=== PATIENT | male | born 1960 | race Caucasian/White ===

== ENCOUNTER 2017-12-31 08:37 | Day surgery (SDC) | payer OTHER ==
[2017-12-27 10:00] VITALS: BMI 29.1
--- NOTE | 2017-12-31 07:49 | P.GSHP ---
History of Present Illness H&P Date: 12/31/17 CHIEF COMPLAINT: Ventral hernia HISTORY OF PRESENT ILLNESS: The patient is a 57-year-old male who presents with a history of swelling and pain along the abdomen from a hernia. Now he presents for surgical intervention. PAST MEDICAL HISTORY: Please see list. PAST SURGICAL HISTORY: Please see list. MEDICATIONS: Please see list. ALLERGIES: Please see list. SOCIAL HISTORY: No illicit drug use FAMILY HISTORY: No reports of Crohn disease or ulcerative colitis. REVIEW OF ORGAN SYSTEMS: CONSTITUTIONAL: No reports of fevers or chills. No reports of weight loss despite prior attempts. GI: Denies any blood in stools or constipation. PHYSICAL EXAM: VITAL SIGNS: Stable GENERAL: Well-developed pleasant male in no acute distress. HEENT: No scleral icterus. Extraocular movements grossly intact. Moist buccal mucosa. NECK: Supple without lymphadenopathy. CHEST: Unlabored respirations. Equal bilateral excursions. CARDIOVASCULAR: Regular rate and rhythm. Distal 2+ pulses. ABDOMEN: Soft, nondistended. Palpable defect of the abdomen. No peritoneal signs. MUSCULOSKELETAL: No clubbing, cyanosis, or edema. ASSESSMENT: 1. Ventral hernia PLAN: 1. Recommend robotic ventral hernia repair with mesh. 2. Benefits and risks of surgical intervention was discussed including possibility of open technique. 3. DVT prophylaxis. 4. Antibiotic prophylaxis. 5. He has obtained cardiac clearance. Past Medical History Past Medical History: Coronary Artery Disease (CAD) Additional Past Medical History / Comment(s): ASD; SOB;umbillical hernia History of Any Multi-Drug Resistant Organisms: None Reported Past Surgical History: Heart Catheterization With Stent Additional Past Surgical History / Comment(s): skin graft,LORI, 01-15-16 percutaneous septal closure atrium. Past Anesthesia/Blood Transfusion Reactions: No Reported Reaction Date of Last Stent Placement:: 12/11/15 Smoking Status: Former smoker - Past Family History Mother Family Medical History: Coronary Artery Disease (CAD), Myocardial Infarction ([place] ) Father Family Medical History: Myocardial Infarction ([place]) Medications and Allergies Home Medications Medication Instructions Recorded Confirmed Type Aspirin 325 mg PO DAILY 12/09/15 12/27/17 History Nitroglycerin Sl Tabs [Nitrostat] 0.4 mg SUBLINGUAL DIRECTED PRN 12/09/15 History Atorvastatin [Lipitor] 80 mg PO HS #30 tab 12/12/15 12/27/17 Rx Metoprolol Tartrate [Lopressor] 25 mg PO BID #30 tab 12/12/15 12/27/17 Rx ALPRAZolam [Xanax] 0.25 mg PO TID PRN 12/20/15 12/27/17 History Montelukast [Singulair] 10 mg PO HS 12/27/17 12/27/17 History Allergies Allergy/AdvReac Type Severity Reaction Status Date / Time Penicillins Allergy Unknown Verified 12/27/17 09:49 Childhood
[~2017-12-31 08:37] MED LIST: DEXAMETHASONE SOD PHOSPHATE 10 MG/ML 1 ML VIAL IV ONE; HEPARIN SODIUM,PORCINE 5,000 UNIT/ML 1 ML VIAL SQ STA; MIDAZOLAM 2 MG/2 ML VIAL IV PRN; MORPHINE SULFATE 4 MG/ML SYRINGE IV PRN; SCOPOLAMINE 1.5MG/72HR PATCH TRANSDERM ONE; ceFAZolin IN SWFI 2 GM/20 ML SYRINGE IVP ONE
[2017-12-31 09:16] LABS: Glucose,Whole Blood 151 mg/dL (75-99)
[2017-12-31] MEDS: LACTATED RINGERS 1,000 ML IV SCH ×3 (09:20→16:09)
[2017-12-31] MEDS: ACETAMINOPHEN IV (For NPO) 1,000 MG in EMPTY BAG 1 BAG IVPB ONE ×2 (09:21→09:42)
[2017-12-31] MEDS: ONDANSETRON 4 MG/2 ML VIAL IVP ONE ×2 (09:21→14:10)
[2017-12-31] MEDS ORDERED: SUCCINYLCHOLINE CHLORIDE 100 MG/5 ML SYR IV ONE (09:44)
[2017-12-31] MEDS ORDERED: LIDOCAINE 1% INJ 10MG/ML (20 ML MDV) ONE (09:44)
[2017-12-31] MEDS ORDERED: NEOSTIGMINE 1 MG/ML 10 ML VIAL ONE (09:44)
[2017-12-31] MEDS ORDERED: MIDAZOLAM 2 MG/2 ML VIAL ONE (09:44)
[2017-12-31] MEDS ORDERED: GLYCOPYRROLATE 0.2 MG/ML 2 ML VIAL ONE (09:44)
[2017-12-31] MEDS ORDERED: HYDROmorphone (PF) 1 MG/ML ONE (09:44)
[2017-12-31] MEDS ORDERED: KETOROLAC 30 MG/ML 1 ML VIAL ONE (09:44)
[2017-12-31] MEDS ORDERED: ROCURONIUM BROMIDE 10 MG/ML 10 ML VIAL IV ONE (09:44)
[2017-12-31] MEDS ORDERED: fentaNYL (PF) 50 MCG/ML 2 ML AMP ONE (09:44)
[2017-12-31] MEDS ORDERED: PROPOFOL 10 MG/ML 20 ML VIAL IV ONE (09:44)
[2017-12-31] MEDS ORDERED: DEXAMETHASONE SOD PHOS (MDV) 100 MG/10 ML VIAL ONE (09:44)
[2017-12-31] MEDS ORDERED: BUPIVACAINE (PF) 0.5% 30 ML VIAL SQ ONE (10:20)
[2017-12-31] MEDS ORDERED: LACTATED RINGERS 1,000 ML IV ONE (10:45)
[2017-12-31 11:32] VITALS: TEMP 97.2
[2017-12-31 12:23] VITALS: RESP 16
--- NOTE | 2017-12-31 13:00 | P.PCN ---
Date of Procedure: 12/31/17 Preoperative Diagnosis: Incarcerated ventral hernia, 4 cm Postoperative Diagnosis: Same Procedure(s) Performed: Robotic-assisted repair of incarcerated initial ventral umbilical hernia, [address] mesh 11.4 cm Anesthesia: GETA, local Surgeon: Maxine Goodman Estimated Blood Loss (ml): 5 Pathology: other (Incarcerated ventral hernia sac) Condition: stable Disposition: same day Operative Findings: Incarcerated umbilical hernia completely reduced and excised. Ventral defect were approximated with 0-V LOC. Description of Procedure:
[2017-12-31 16:07] VITALS: BP 138/76; PULSE 91
--- NOTE | 2018-01-02 23:03 | P.OP ---
Date of Procedure: 12/31/17 Description of Procedure: SURGEON: GO KU MD AIRPORT DUTY MANAGER: 1. Nessa Sanford 2. Stacy Alba. PREOPERATIVE DIAGNOSES: 1. Incarcerated umbilical ventral hernia. 2. Hypertensive cardiomyopathy. 3. Asthma. 4. Coronary artery disease. POSTOPERATIVE DIAGNOSES: 1. Incarcerated umbilical ventral hernia. 2. Hypertensive cardiomyopathy. 3. Asthma. 4. Coronary artery disease. 5. Incarcerated ventral umbilical hernia, 4 cm. OPERATION: 1. Robotic-assisted laparoscopic reduction and repair of incarcerated umbilical ventral hernia, 4 cm, with Bard Ventralight ST mesh 11.4 cm. ANESTHESIA: GETA, local ESTIMATED BLOOD LOSS: 5 mL. SPECIMENS: (Incarcerated ventral hernia sac) COMPLICATIONS: None. Condition: stable Disposition: same day INDICATIONS: The patient is a 57-year-old male who comes in with incarceration of umbilical hernia. Surgical intervention with laparoscopic versus robotic and open techniques were reviewed. Placement of mesh was also reviewed. Benefits and risks were thoroughly described. Informed consent was obtained. DESCRIPTION OF PROCEDURE: The patient was brought into the operating room and laid in supine position. After general induction, the abdomen had been prepped and draped in standard sterile fashion. Ioban draping was also placed. Prior to incision, a timeout protocol was confirmed with surgical team regarding the patient's name including procedures to be performed. The robot was primed prior to the procedure. Initial incision was made with an #11 blade along the left upper quadrant after anesthetizing the skin. A 0 degree 5 mm laparoscopic trocar entry was performed. Diagnostic laparoscopy demonstrated no small bowel pathology. An incarcerated umbilical hernia 4 cm was also identified. A 12 mm trocar was placed along the left lateral abdominal wall 10 cm lateral to the umbilicus. An 8 mm port was placed along the left lower quadrant under direct localization. The 5-mm port was exchanged for an 8 mm robotic port. Placements of the ports were at 10 to 15 cm from the target anatomy and at least 8 cm apart. Next, an 11.[address] mesh was entered into abdominal cavity under direct visualization. The [employer] SI robot was primed, prepped, draped then docked along the left side of the patient. I then sat at the robot [employer]ale SI console where working arms of the robot including scissor connected to cauterty and graspers were placed by assistant account manager. Initial attention was brought to the anterior abdominal wall whereby upon careful observation a defect of 4-cm was at the umbilicus found. Using dissecting grasper as well as electro-Bovie cautery, the peritoneum was scored. The incarcerated fat of the umbilicus was delivered into the abdominal cavity. The size of the defect was 4 cm upon measurement. The fascia was cleaned of peritoneal fat to allow for 3 to 5 cm margin of the mesh. Next, hemostasis was checked with cautery. The ventral defect was closed using a running stitch of 0 V-Loc suture initially from the 12 o'clock to 6 o'clock position in a longitudinal fashion. Ventralight ST 11.4 cm, circular mesh was positioned with the rough side of the mesh was placed toward the anterior abdominal wall. The smooth side was placed towards the bowel. Starting from 10 o'clock position to the 6 o'clock position, 2-0 V-Loc suture was ran in a peritoneum to fascia to the mesh approach. Similarly another V-Loc stitch was run from 6 o'clock to 10 o'clock completely adhering the mesh to the anterior abdominal wall. The V-Loc sutures were cut with robotic scissors to the level of the fascia and extracted from the abdominal cavity by the assistant account manager. The da Gale SI robot was undocked from the patient. I re-scrubbed into the case for closure of incisions. The fascia of the 12-mm port was reapproximated using 0 Vicryl and a Teo hompson. Similarly, the left upper quadrant incarcerated incisional hernia was reduced into the abdominal cavity with graspers. Two simple sutures of 0-Vicryl and a Teo Ortiz were placed with complete closure of the incisional hernia. The incisions were reapproximated using 4-0 Monocryl in an interrupted subcuticular fashion. Dermabond was applied to the skin. An umbilical dressing was placed. All instruments and pneumoperitoneum were evacuated from the abdominal cavity. At the end of the procedure, needle, sponge, and instrument count had been verified correct by operating room surgical technician. The patient was taken to the postanesthesia care unit in stable condition with abdominal binder. Intraoperative films were described to the patient's family who were pleased with the level of care. FINDINGS: 1. Incarcerated umbilical hernia defect, 4 cm. Plan - Discharge Summary Discharge Rx Participant: Yes New Discharge Prescriptions: New HYDROcodone/APAP 5-325MG [[place] 5-325] 1 tab PO Q6HR PRN #20 tab PRN Reason: Pain Ibuprofen [Motrin] 600 mg PO Q8HR PRN #30 tab PRN Reason: pain Continue Aspirin 325 mg PO DAILY Nitroglycerin Sl Tabs [Nitrostat] 0.4 mg SUBLINGUAL DIRECTED PRN PRN Reason: Chest Pain Atorvastatin [Lipitor] 80 mg PO HS #30 tab Metoprolol Tartrate [Lopressor] 25 mg PO BID #30 tab ALPRAZolam [Xanax] 0.25 mg PO TID PRN PRN Reason: Anxiety Montelukast [Singulair] 10 mg PO HS Discharge Medication List Aspirin 325 mg PO DAILY 12/09/15 [History] Nitroglycerin Sl Tabs [Nitrostat] 0.4 mg SUBLINGUAL DIRECTED PRN 12/09/15 [ History] Atorvastatin [Lipitor] 80 mg PO HS #30 tab 12/12/15 [Rx] Metoprolol Tartrate [Lopressor] 25 mg PO BID #30 tab 12/12/15 [Rx] ALPRAZolam [Xanax] 0.25 mg PO TID PRN 12/20/15 [History] Montelukast [Singulair] 10 mg PO HS 12/27/17 [History] HYDROcodone/APAP 5-325MG [[place] 5-325] 1 tab PO Q6HR PRN #20 tab 12/31/17 [Rx] Ibuprofen [Motrin] 600 mg PO Q8HR PRN #30 tab 12/31/17 [Rx] Follow up Appointment(s)/Referral(s): Go Ku MD [STAFF PHYSICIAN] - 01/04/18 8:00 am ([facility] ) Patient Instructions/Handouts: *Surgery [facility] - (Anesthesia) Discharge Instructions Outpatient Surgery, *Surgery [facility] - Scopalamine Patch Instructions, Abdominal Binder (DC), Ventral Hernia Repair (DC) Activity/Diet/Wound Care/Special Instructions: Do not remove dressings. Wear binder on at all times except showering. No bath tub soaks. No lifting over 4 pounds in 4 weeks. Discharge Disposition: HOME SELF-CARE
--- NOTE | 2018-01-05 08:18 | CDI ---
Date: 01/05/2018 CDS/Paint Tester Name: Brayan Watson Phone: If any questions, call [employer] Marketing Researcher at [phone] Patient Name: Festus Mccormick Admit Date: 12/31/2017 Discharge Date: 12/31/2017 ATTENTION: The [facility] Coding Staff appreciate your assistance in clarifying documentation. Please respond to the clarification below the line at the bottom and electronically sign. The [facility] Coding staff will review the response and follow-up if needed. Please note: Queries are made part of the Legal Health Record. If you have any questions, please contact the Marketing Researcher. Dear Dr. Goodman As per operative report preoperative and postoperative diagnosis was documented as Incarcerated umbilical and incarcerated ventral hernia. In description of procedure Incarcerated incisional hernia was reduced. Based on your clinical opinion please clarify if patient has incarcerated incisional hernia or incarcerated ventral hernia, if patient has ventral hernia kindly document the procedure notes for ventral hernia reduction. Thank you for your kind consideration. umbilical hernia is a specific type of ventral hernia.....this is not an incisional hernia.....report clearly dictates initial ventral hernia NOT INCISIONAL hernia MTDD
== END 2017-12-31 16:41 | disposition home or self-care (01) ==
LOC: OR 08:37
PROVIDERS: ATTEND Surgery Plastic and Reconstructive Surgery
DX: K42.0 Umbilical hernia with obstruction, without gangrene (principal); K43.6 Other and unspecified ventral hernia with obstruction, without gangrene; I25.10 Atherosclerotic heart disease of native coronary artery without angina pectoris; J45.909 Unspecified asthma, uncomplicated; F41.9 Anxiety disorder, unspecified; Z87.891 Personal history of nicotine dependence; Z82.49 Family history of ischemic heart disease and other diseases of the circulatory system; Z95.5 Presence of coronary angioplasty implant and graft; Z79.82 Long term (current) use of aspirin; Z79.899 Other long term (current) drug therapy; Z88.0 Allergy status to penicillin
CPT/HCPCS: 49653; 86900; 86901; 86850; 88302; C1781; J2250; J1644; J1100 ×2; J2710; J2405; J2001; J3010; J1885; J1170; J0131; J0330; J2704; J0690

== ENCOUNTER 2023-03-05 07:53 | Day surgery (SDC) | payer OTHER ==
[2023-03-03 11:47] VITALS: BMI 29.8
[~2023-03-05 07:53] MED LIST changes: +ALPRAZolam 0.25 MG TAB PO PRN; +ALPRAZolam 0.5 MG TAB PO PRN; +ASPIRIN 325 MG TAB PO STA; +ATORVASTATIN 80 MG TAB PO STA; -DEXAMETHASONE SOD PHOSPHATE 10 MG/ML 1 ML VIAL IV ONE; +HEPARIN SODIUM,PORCINE 10,000 UNIT in SODIUM CHLORIDE 0.9% 1,000 ML IRRIGATION PRN; +HEPARIN SODIUM,PORCINE 2,500 UNIT in SODIUM CHLORIDE 0.9% 250 ML IRRIGATION PRN; -HEPARIN SODIUM,PORCINE 5,000 UNIT/ML 1 ML VIAL SQ STA; -MIDAZOLAM 2 MG/2 ML VIAL IV PRN; -MORPHINE SULFATE 4 MG/ML SYRINGE IV PRN; +NITROGLYCERIN SL TABS 0.4 MG TAB SUBLINGUAL PRN; -SCOPOLAMINE 1.5MG/72HR PATCH TRANSDERM ONE; +SODIUM CHLORIDE 0.9% 1,000 ML in EMPTY BAG 1 BAG IV SCH; -ceFAZolin IN SWFI 2 GM/20 ML SYRINGE IVP ONE
[2023-03-05 08:41] LABS: Glucose,Whole Blood 135 mg/dL (70-110)
[2023-03-05 08:46] VITALS: RESP 16; TEMP 97.7
[2023-03-05] MEDS ORDERED: VERAPAMIL 2.5 MG/ML 2 ML AMP ONE (10:45)
[2023-03-05] MEDS ORDERED: HEPARIN SODIUM 1,000 UN/ML (10ML VL) ONE (10:55)
[2023-03-05] MEDS ORDERED: MIDAZOLAM 2 MG/2 ML VIAL IV ONE (11:11)
[2023-03-05] MEDS ORDERED: LIDOCAINE 1% INJ 10MG/ML (5 ML VIAL-PF) SQ ONE (11:12)
[2023-03-05] MEDS ORDERED: VERAPAMIL SYRINGE (5 MG/10 ML) INTRAARTER ONE (11:13)
[2023-03-05] MEDS ORDERED: HEPARIN SODIUM 1,000 UN/ML (10ML VL) IV ONE (11:16)
[2023-03-05] MEDS ORDERED: IOPAMIDOL-370 200ML BTL INJ ONE (11:29)
[2023-03-05] MEDS ORDERED: RX INFO: IV CONTRAST WAS GIVEN 1 EACH MISC MISCELLANE PRN (11:31)
--- NOTE | 2023-03-05 11:36 | P.PCN ---
Date of Procedure: 03/05/23 Operative Findings: CARDIAC CATHETERIZATION PERFORMING PHYSICIAN: Edwardo Keith MD, RPVI PROCEDURE PERFORMED: 1. Selective right and left coronary angiogram 2. Left heart catheterization INDICATION: Chest discomfort concerning for unstable angina and the 62-year-old gentleman with CAD and prior stenting of the LAD COMPLICATION: None APPROACH: Right radial artery LEVEL OF SEDATION: Moderate with a sedation length of 20 minutes PROCEDURE DESCRIPTION: After obtaining an informed consent, the patient was brought to cardiac bean sprout laborer. Local anesthesia was performed using lidocaine subcutaneously. The right radial artery was cannulated using Seldinger technique, the guidewire passed easily, following that we advanced a 5-Hungarian sheath dilator assembly, the wire and dilator were removed and sheath was flushed. Following that, 2 mg of verapamil along with 5000 unit heparin were given. Selective right and left coronary angiogram using a 6-Hungarian JR4 and JL 3.5 catheters. Following that we did left heart catheterization using 6-Hungarian pigtail catheter. The procedure was completed there was no complication. SELECTIVE CORONARY ANGIOGRAM: The right coronary artery: Large-caliber vessel and a dominant vessel. The RCA has intermediate disease in the midportion appears to be in the range of 50%. Left main: Has mild disease only. Bifurcates into LCx and LAD The left circumflex: The proximal LAD has mild disease only. The mid LAD is a stented and the stent is patent. The LAD distally appears to have mild disease only. The LAD gives rise into a large diagonal branch which has a lesion appeared to be in the range of 50%. The left anterior descending artery: The LCx is a large caliber vessel codominant vessel. The proximal circumflex has mild disease only. It gives rises into OM1 which is a medium caliber vessel was critical disease appears to be unchanged compared to before. Or into has mild disease only. The circumflex distally appears to have mild disease only. HEMODYNAMICS: LVEDP was only 8 mmHg was no significant gradient across aortic valve CONCLUSION: 1. Patent stent in the mid LAD. Severe disease involving jailed medium size diagonal branch 2. Severe disease involving the first OM branch which is a medium caliber vessel. The disease appeared to be unchanged compared to before POSTPROCEDURE MANAGEMENT: Consider medical treatment and follow-up with the patient
[2023-03-05] MEDS ORDERED: SODIUM CHLORIDE 0.9% 1,000 ML IV SCH (11:45)
[2023-03-05 14:25] VITALS: BP 100/56; PULSE 60
== END 2023-03-05 14:48 | disposition home or self-care (01) ==
LOC: CATHCVL 07:53
PROVIDERS: ATTEND Internal Medicine Interventional Cardiology
DX: I25.10 Atherosclerotic heart disease of native coronary artery without angina pectoris (principal); Z95.5 Presence of coronary angioplasty implant and graft; E11.52 Type 2 diabetes mellitus with diabetic peripheral angiopathy with gangrene; I10 Essential (primary) hypertension; E78.5 Hyperlipidemia, unspecified; Q21.10 Atrial septal defect, unspecified; I25.5 Ischemic cardiomyopathy; J40 Bronchitis, not specified as acute or chronic; Z79.1 Long term (current) use of non-steroidal anti-inflammatories (NSAID); Z79.82 Long term (current) use of aspirin; Z79.84 Long term (current) use of oral hypoglycemic drugs; Z79.899 Other long term (current) drug therapy; Z82.49 Family history of ischemic heart disease and other diseases of the circulatory system; Z88.0 Allergy status to penicillin; Z87.891 Personal history of nicotine dependence
CPT/HCPCS: 93458; 99152; C1769; C1894; J2250; J2001; J1644; Q9967

== ENCOUNTER 2025-01-17 06:13 | Day surgery (SDC) | payer MEDICARE, OTHER ==
[2025-01-17] MEDS: IV FLUID CONTINUATION 1,000 ML IV ONE ×2 (06:45→08:13)
[2025-01-17 06:57] LABS: Glucose,Whole Blood 149 mg/dL (70-110)
[2025-01-17] MEDS ORDERED: BENZOCAINE SPRAY 1 CAN TOPICAL PRN (07:00)
[2025-01-17] MEDS: SODIUM CHLORIDE 0.9% 500 ML 500 ML IV SCH (07:02)
[2025-01-17] MEDS ORDERED: PROPOFOL 10 MG/ML 20 ML VIAL IV ONE (07:25)
[2025-01-17 07:31] LABS: African American GFR (CKD) >90 (>60 ml/min/1.73 sqM); Anion Gap 10 mmol/L; Blood Urea Nitrogen 21 mg/dL (9-20); Calcium 9.2 mg/dL (8.4-10.2); Carbon Dioxide 23 mmol/L (22-30); Chloride 105 mmol/L (98-107); Glucose 156 mg/dL (74-99); Non-African American GFR(CKD) 85 (>60 ml/min/1.73 sqM); Sodium 138 mmol/L (137-145)
[2025-01-17 07:37] LABS: Potassium 5.3 mmol/L (3.5-5.1)
[2025-01-17] MEDS: BENZOCAINE SPRAY 1 EACH MM ONE (08:12)
--- NOTE | 2025-01-17 08:12 | P.PCN ---
Date of Procedure: 01/17/25 Operative Findings: TRANSESOPHAGEAL ECHOCARDIOGRAM CRITICAL POWER INSTALL TECHNICIAN: RUSS SOLANO MD, RPVI INDICATION: Rule out intracardiac thrombus before cardioversion SEDATION: Conscious sedation COMPLICATION: None LEVEL OF SEDATION The patient was sedated using propofol PROCEDURE DESCRIPTION: After obtaining an informed consent, the patient was brought to transesophageal echocardiogram room. Pulse oximetry and heart monitors were attached to the patient. The patient throat was sprayed using lidocaine. The patient was turned into left lateral position. After that a bite guard was placed. After an appropriate conscious sedation was initiated, the transesophageal echocardiogram was advanced through a bite guard into the mid esophagus. A 2-D echocardiogram images, color Doppler images, continuous wave images, pulse-wave images, of various cardiac structure were performed. After that the transesophageal echocardiogram probe was advanced into the stomach and fixed to obtain transgastric view was. The probe was brought into the mid esophagus. Inter-atrial septum was interrogated using 2D images, color Doppler images, and then contrast study. After that transesophageal echocardiogram was withdrawn out and upon withdrawing the descending thoracic aorta all the way up to the arch was evaluated. CONCLUSION: 1. Intact left atrial appendage 2. No evidence of intracardiac thrombus 3. Mildly impaired LV function with EF around 45% 4. No significant valvular abnormalities
--- NOTE | 2025-01-17 08:13 | P.PCN ---
Date of Procedure: 01/17/25 Operative Findings: Cardioversion Report Performing physician Edwardo Keith M.D. Procedure performed Successful cardioversion of atrial fibrillation to normal sinus mechanism using 120 J at first attempt Indication Symptomatic atrial fibrillation Complication None Level of sedation The procedure was performed under deep sedation using propofol with STEMHOLE BORER in the room Procedure description After obtaining an informed consent the patient was brought to the recovery room. Sedation was introduced using propofol with STEMHOLE BORER in the room. Subsequently the patient cardioverted from atrial fibrillation to normal sinus mechanism using 200 J and first attempt Conclusion Successful cardioversion of atrial fibrillation to normal sinus mechanism using 200 J Postprocedure management Continue the current medical regimen Continue oral anticoagulation Follow-up with the patient
[2025-01-17] MEDS: LACTATED RINGERS 1,000 ML IV SCH (08:18)
[2025-01-17 08:25] VITALS: TEMP 97.6
[2025-01-17 08:45] VITALS: RESP 18
[2025-01-17 09:02] VITALS: BP 112/74; PULSE 73
== END 2025-01-17 09:44 | disposition home or self-care (01) ==
LOC: OR 06:13
PROVIDERS: ATTEND Internal Medicine Interventional Cardiology
DX: I25.10 Atherosclerotic heart disease of native coronary artery without angina pectoris (principal); I48.0 Paroxysmal atrial fibrillation; I73.9 Peripheral vascular disease, unspecified; I10 Essential (primary) hypertension; E78.5 Hyperlipidemia, unspecified; E11.8 Type 2 diabetes mellitus with unspecified complications; F41.9 Anxiety disorder, unspecified; Q21.19 Other specified atrial septal defect; Z95.5 Presence of coronary angioplasty implant and graft; Z88.0 Allergy status to penicillin; Z79.02 Long term (current) use of antithrombotics/antiplatelets; Z79.82 Long term (current) use of aspirin; Z79.84 Long term (current) use of oral hypoglycemic drugs; Z79.899 Other long term (current) drug therapy
CPT/HCPCS: 93312; 93320; 93325; 92960; 80048; J2704

== ENCOUNTER 2025-03-16 06:17 | Day surgery (SDC) | payer MEDICARE, OTHER ==
[2025-03-16] MEDS: SODIUM CHLORIDE 0.9% 1,000 ML IV SCH (07:09)
[2025-03-16] MEDS: IV FLUID CONTINUATION 500 ML IV ONE (07:12)
[2025-03-16 07:13] LABS: Glucose,Whole Blood 145 mg/dL (70-110)
[2025-03-16] MEDS ORDERED: PROPOFOL 10 MG/ML 20 ML VIAL IV ONE (07:25)
[2025-03-16 08:04] VITALS: TEMP 98
[2025-03-16 08:27] LABS: African American GFR (CKD) 62 (>60 ml/min/1.73 sqM); Anion Gap 10 mmol/L; Blood Urea Nitrogen 28 mg/dL (9-20); Calcium 9.7 mg/dL (8.4-10.2); Carbon Dioxide 25 mmol/L (22-30); Chloride 107 mmol/L (98-107); Glucose 156 mg/dL (74-99); Non-African American GFR(CKD) 54 (>60 ml/min/1.73 sqM); Potassium 4.3 mmol/L (3.5-5.1); Sodium 142 mmol/L (137-145)
[2025-03-16 08:55] VITALS: BP 110/70; PULSE 72; RESP 18
--- NOTE | 2025-03-20 15:54 | P.PCN ---
Date of Procedure: 03/20/25 Operative Findings: Cardioversion Report Performing physician Edwardo Keith M.D. Procedure performed Successful cardioversion of atrial fibrillation to normal sinus mechanism using 200 J at first attempt Indication Symptomatic atrial fibrillation Complication None Level of sedation The procedure was performed under deep sedation using propofol with GLASS BREAKER in the room Procedure description After obtaining an informed consent the patient was brought to the recovery room. Sedation was introduced using propofol with GLASS BREAKER in the room. Subsequently the patient cardioverted from atrial fibrillation to normal sinus mechanism using 200 J and first attempt Conclusion Successful cardioversion of atrial fibrillation to normal sinus mechanism using 200 J Postprocedure management Continue the current medical regimen Continue oral anticoagulation Follow-up with the patient
== END 2025-03-16 09:11 | disposition home or self-care (01) ==
LOC: OR 06:17
PROVIDERS: ATTEND Internal Medicine Interventional Cardiology
DX: I25.10 Atherosclerotic heart disease of native coronary artery without angina pectoris (principal); I48.0 Paroxysmal atrial fibrillation; I73.9 Peripheral vascular disease, unspecified; I10 Essential (primary) hypertension; E11.8 Type 2 diabetes mellitus with unspecified complications; E78.5 Hyperlipidemia, unspecified; Q21.10 Atrial septal defect, unspecified; Z95.5 Presence of coronary angioplasty implant and graft; Z90.49 Acquired absence of other specified parts of digestive tract; Z88.0 Allergy status to penicillin; Z79.02 Long term (current) use of antithrombotics/antiplatelets; Z79.82 Long term (current) use of aspirin; Z79.84 Long term (current) use of oral hypoglycemic drugs; Z79.899 Other long term (current) drug therapy
CPT/HCPCS: 92960; 80048; J2704